=== PATIENT | female | born 1950 | race African-American/Black ===

== ENCOUNTER 2020-04-03 16:38 | Emergency (ER) | payer OTHER ==
[~2020-04-03] VITALS: Ht 149.9 cm; Wt 68.0 kg
[~2020-04-03 16:38] MED LIST: ACETAMINOPHEN650 M5 OR; APAP/CODEINE ELI5 M1 OR; ASPIRIN EC81 M1 PO; ASPIRIN325 PO; ATENOLOL 100MG100 M2 PO; ATENOLOL 100MG100 MG PO; CLONIDINE0.1 PO; COMBIVENT INH; DIPHENHYDRAMINE25 M3 OR; FAMOTIDINE20 MG PO; FLEXERIL PO; HYDROCHLOROTHIA25 M1 PO; HYDROCHLOROTHIA25 M2 PO; IBUPROFEN 600600 M1 PO; IBUPROFEN 800800 M1 PO; LIORESAL 10 MG10 MG PO; LISINOPRIL10 MG PO; LISINOPRIL20 MG PO; MEDROL DOSPAK21 TA1; MOTION RELIEF25 MG PO; MUCINEX DM TABL1 TA1 PO; NORCO 5-325 TA1 EACH PO; PROVENTIL17 G1 IH; TESSALON PERLE100 MG PO; VALIUM2 MG PO; VITAMIN D10000 UNIT PO; ZPAK PO; [UNRECOGNIZED DRUG - OTHER] PO
[2020-04-03] MEDS ORDERED: HYDROCODON-ACE1 EAC7 PO (18:57)
[2020-04-03] MEDS ORDERED: MITIGARE0.6 MG PO (18:57)
[2020-04-03] MEDS ORDERED: MOBIC15 MG PO (18:57)
[2020-04-03 19:22] VITALS: BP 176/66
== END 2020-04-03 19:23 | disposition home or self-care (01) ==
LOC: ER 16:38
DX: M10.9 Gout, unspecified (principal); R22.31 Localized swelling, mass and lump, right upper limb; I10 Essential (primary) hypertension; Z79.82 Long term (current) use of aspirin; Z79.899 Other long term (current) drug therapy

== ENCOUNTER 2020-08-29 20:58 | Emergency (ER) | payer OTHER ==
[~2020-08-29] VITALS: Ht 149.9 cm; Wt 65.8 kg
[~2020-08-29 20:58] MED LIST changes: +HYDROCODON-ACE1 EAC7 PO; +MITIGARE0.6 MG PO; +MOBIC15 MG PO
[2020-08-29] MEDS ORDERED: TORADOL 10 MG T10 MG PO (22:24)
[2020-08-29 22:54] VITALS: BP 157/103
== END 2020-08-29 23:30 | disposition home or self-care (01) ==
LOC: ER 20:58
DX: S90.31XA Contusion of right foot, initial encounter (principal); I10 Essential (primary) hypertension; F17.210 Nicotine dependence, cigarettes, uncomplicated; Z88.8 Allergy status to other drugs, medicaments and biological substances; Z79.82 Long term (current) use of aspirin; Z79.899 Other long term (current) drug therapy; W22.8XXA Striking against or struck by other objects, initial encounter; Y93.89 Activity, other specified; Y92.89 Other specified places as the place of occurrence of the external cause; Y99.9 Unspecified external cause status

== ENCOUNTER 2020-12-05 11:47 | Emergency (ER) | payer OTHER ==
[~2020-12-05] VITALS: Ht 149.9 cm; Wt 68.0 kg
[~2020-12-05 11:47] MED LIST changes: +TORADOL 10 MG T10 MG PO
[2020-12-05] MEDS ORDERED: OLMESARTAN MEDO40 MG PO (11:57)
[2020-12-05] MEDS ORDERED: PREDNISONE 20 M20 M1 PO (12:34)
[2020-12-05 13:51] VITALS: BP 190/86
== END 2020-12-05 13:52 | disposition home or self-care (01) ==
LOC: ER 11:47
DX: M10.9 Gout, unspecified (principal); I10 Essential (primary) hypertension; F17.210 Nicotine dependence, cigarettes, uncomplicated; Z79.82 Long term (current) use of aspirin; Z79.899 Other long term (current) drug therapy; Z88.8 Allergy status to other drugs, medicaments and biological substances